=== PATIENT | female | born 1960 | race Caucasian/White ===

== ENCOUNTER → 2024-02-02 | Outpatient (CLI) | payer BC ==
[2024-02-02 10:40] LABS: HEMOGLOBIN 11.8 g/dl (12.5-16.0); MEAN CELL VOLUME 98 fl (80.0-100.0); MEAN CORPUSCULAR HEMOGLOBIN 33 pg (27-31); MEAN CORPUSCULAR HGB CONC 34 g/dl (33.0-37.0); MEAN PLATELET VOLUME 9.4 fl (7.4-10.4); PLATELET COUNT 280 K/mm3 (130-400); RED BLOOD COUNT 3.57 M/mm3 (4.10-5.30); REDCELL DISTRIBUTION WIDTH-CV 13.7 % (11.5-14.5)
[2024-02-02 10:47] LABS: ALBUMIN 3.5 g/dL (3.4-4.8); BILIRUBIN,TOTAL 0.9 mg/dL (0.2-1.2); CALCIUM 9.3 mg/dL (8.4-10.2); CREATININE, serum 0.73 mg/dL (0.57-1.11); POTASSIUM 4.4 mEq/L (3.5-4.5); TOTAL PROTEIN 6.2 g/dl (6.2-8.1)
[2024-02-02 10:56] LABS: HEMATOCRIT 35.1 % (37.0-47.0)
[2024-02-02 12:10] LABS: BAND 1 % (0-10); BASOPHIL 2 % (0-2); LYMPHOCYTE 34 % (20.0-51.0); NEUTROPHILS 59 % (42.0-75.2); PLATELET ESTIMATE NORMAL (NORMAL)
[2024-02-06 05:39] LABS: CANCER ANTIGEN CA 27.29 81.1 U/mL (0.0-38.6)
== END ==
LOC: COL.LAB 09:41
PROVIDERS: Internal Medicine
DX: C50.911 Malignant neoplasm of unspecified site of right female breast (principal)